=== PATIENT | male | born 1925 | race Caucasian/White ===

== ENCOUNTER 2016-07-17 11:48 | Emergency (ER) | payer MEDICARE ==
[~2016-07-17] VITALS: Ht 177.8 cm; Wt 81.6 kg
[~2016-07-17 11:48] MED LIST: ASPI-586 PO; BESI5DRO OS; BRIM5DRO OS; BRIM5DRO12 OS; CEFU500T PO; CIPR500T78 PO; DUREZOL 0.05% OS; HYDR-34 PO; HYDR-3729 PO; HYDR-3812 PO; LAMO25TA75 PO; NEPA1.7D OS; TMSL.4C PO
--- OUTSIDE RECORDS SUMMARY | 2016-07-17 11:53 | XMS REPORT | Continuity of Care Document ---
Author Author [facility] Organization [facility] Address Unknown Phone Unavailable Care Team Providers Care Price Economist Name Role Phone Ana Braun PCP [phone] Source Comments Some departments are not documenting in the electronic medical record. If you do not see the information that you expected, contact Release of Information in the Health Information Management department at [phone] for further assistance in locating additional records.[facility] Active Allergies and Adverse Reactions Allergen Noted Date Severity Reactions Comments Aspirin 09/24/2012 STOMACH UPSET, NAUSEA AND VOMITING Current Medications Prescription Sig. Disp. Refills Start End Date Status Date calcium carbonate (TUMS) Take 500 mg by mouth as Active 500 mg (200 mg elemental Needed. calcium) chewable tablet tamsulosin (FLOMAX) 0.4 Take 0.4 mg by mouth Active mg capsule daily. Do not crush, chew or open capsules. Take 30 minutes following the same meal each day. aspirin 81 mg chewable Chew 81 mg by mouth Active tablet daily. Take with food. lamoTRIgine (LAMICTAL) 25 Take 1 Tab by mouth 60 Tab 3 04/01/20 Active mg tablet daily. Take 25mg daily x1 16 week, then 25mg twice a day x1 week, then 50mg twice daily x1 week, then 75mg twice a day. 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 Most Recent Encounters Date Type Specialty Providers Description 07/14/2016 Documentation Neurology Yves Henderson MD 05/13/2016 Hospital Yves Henderson MD Encounter Social History Tobacco Use Types Packs/Day Years Used Date Former Smoker Cigarettes 30 Quit: 06/26/1967 Smokeless Tobacco: Never Used Alcohol Use Drinks/Week oz/Week Comments Yes 7 Glasses of 4.2 weekly wine Last Filed Vital Signs Vital Sign Reading Time Taken Blood Pressure 115/60 04/01/2016 8:14 AM CDT Pulse 92 04/01/2016 8:14 AM CDT Temperature 37.1 C (98.7 F) 04/01/2016 8:10 AM CDT Respiratory Rate - - Height 1.778 m (5' 10") 03/31/2016 4:33 PM CDT Weight 81.647 kg (180 lb) 03/31/2016 4:33 PM CDT Body Mass Index 25.83 03/31/2016 4:33 PM CDT Oxygen Saturation 100% 04/01/2016 8:14 AM CDT Plan of Care Health Maintenance Due Date Last Done Comments Physical (Comprehensive) 1934 Exam Pertussis Vaccine 1938 Tetanus Vaccine 1944 Shingles Vaccine 1987 Prevnar/Pneumovax (#1) 1992 Influenza Vaccine 02/25/2016 Results from Last 3 Months Not on file
[2016-07-17] MEDS ORDERED: AZIT250T PO ×2 (12:10→13:18)
[2016-07-17] MEDS ORDERED: PRD20T PO ×2 (12:10→13:18)
[2016-07-17] MEDS ORDERED: OXYMETAZOLINE (AFRIN) 0.05% NA 15 ML BTL ONE (12:11)
--- NOTE | 2016-07-17 12:11 | ED Cough/URI ---
General Chief Complaint: Cough/Cold/Flu Symptoms Stated Complaint: SORE THROAT Nursing Triage Note: AMBULATED TO ROOM 05 WITH HEAD COLD SX SINCE MON. DENIES FEVER. Source: patient Exam Limitations: no limitations History of Present Illness Time seen by provider: 11:57 Initial Comments 89 yo male patient presents with nasal congetion and sore throat beginning Mon. (+) malaise. Timing/Duration: other (4-5 days) Severity/Quality: no cough Prior Episodes/Possible Cause: no prior episodes Modifying Factors: Worse With Other (no improvement with OTC meds) Allergies and Home Medications Allergies Coded Allergies: aspirin (Verified Adverse Reaction, Unknown, 03/27/16) Patient states Aspirin really bothers his stomach. Home Medications Azithromycin 250 Mg Tablet #6 250 MG PO UD TAKE 2 TABLETS TODAY, THEN TAKE 1 TABLET DAILY FOR 4 MORE DAYS Prescribed by: ASHLEY ORDONEZ on 07/17/16 1210 Hydrocodone/Acetaminophen 1 Each Tablet 1 EACH PO Q4H PRN PRN PAIN (Reported) Lamotrigine 25 Mg Tablet 25 MG PO BID (Reported) Prednisone 20 Mg Tab #10 40 MG PO DAILY Prescribed by: ASHLEY ORDONEZ on 07/17/16 1210 Tamsulosin Hcl 0.4 Mg Cap 0.4 MG PO HS (Reported) Constitutional: No chills, No dizziness, No fever, malaise EENTM: nose congestion tearing throat painNo ear discharge, No ear pain, No eye pain, No throat swelling, No vision loss Respiratory: No cough, No short of breath, No wheezing Cardiovascular: no symptoms reported Gastrointestinal: no symptoms reported Musculoskeletal: no symptoms reported Skin: no symptoms reported Psychiatric/Neurological: No Symptoms Reported All Other Systems Reviewed Negative Unless Noted: Yes (Negative excepted noted.) Past Artrvfq-Kyxnus-Dqnljn Hx Patient Social History Type Used: Cigarettes Former Smoker/When Quit: Feb 05, 1962 Recent Foreign Travel: No Contact w/Someone Who Travel: No Recent Infectious Disease Expo: No Recent Hopitalizations: No Immunizations Up To Date Tetanus Booster (TDap): More than 5yrs Date of Pneumonia Vaccine: Jun 26, 2010 Date of Influenza Vaccine: Mar 22, 2016 Seasonal Allergies Seasonal Allergies: No Surgeries HX Surgeries: Yes (BACK X2) Surgeries: Appendectomy, Eye Surgery, Orthopedic, Tonsillectomy Respiratory Hx Respiratory Disorders: No Cardiovascular Hx Cardiac Disorders: No (LOOP RECORDER) Neurological Hx Neurological Disorders: No Reproductive System Hx Reproductive Disorders: No Sexually Transmitted Disease: No HIV/AIDS: No Genitourinary Hx Genitourinary Disorders: No Genitourinary Disorders: Benign Prostatic Hyperpl Gastrointestinal Hx Gastrointestinal Disorders: No Gastrointestinal Disorders: Ulcer Musculoskeletal Hx Musculoskeletal Disorders: Yes (BACK SURGERY X2) Musculoskeletal Disorders: Arthritis, Fractures Endocrine Hx Endocrine Disorders: No HEENT HX ENT Disorders: Yes (BILATERAL CATARACTS, WITH LEFT CATARACT REMOVED) HEENT Disorders: Cataract, Glaucoma Loss of Vision: Denies Hearing Impairment: Hard of Hearing, Bilateral Hearing Aide Cancer Hx Cancer: Yes ("PRECANCEROUS" ) Cancer: Skin Psychosocial Hx Psychiatric Problems: No Integumentary HX Skin/Integumentary Disorder: Yes ("PRECANCEROUS" SKIN LESIONS) Blood Transfusions Hx Blood Disorders: No Adverse Reaction to a Blood Tr: No Reviewed Nursing Assessment Reviewed/Agree w Nursing PMH: Yes Family Medical History Significant Family History: No Pertinent Family Hx Family Medial History: Cancer 03 MOTHER (Bone) Family history: Arthritis 03 FATHER 03 MOTHER Family history: Hypertension 03 FATHER Myocardial infarction 03 FATHER Physical Exam Vital Signs Vital Sign - Last 12Hours 07/17/16 11:59 Temp 98.1 Pulse 60 Resp 18 B/P 135/76 Pulse Ox 100 Capillary Refill : Less Than 3 Seconds General Appearance: WD/WN no apparent distress HEENT: PERRL/EOMI TMs normal pharyngeal erythema other ((+) nasal congestion with green drainage) Neck: non-tender full range of motion supple lymphadenopathy (R) lymphadenopathy (L) Respiratory: lungs clear normal breath sounds no respiratory distress Cardiovascular: regular rate, rhythm no murmur Gastrointestinal: normal bowel sounds non tender softNo distended Neurologic/Psychiatric: alert normal mood/affect oriented x 3 Skin: normal color warm/dry Progress/Results/Core Measures Results/Orders My Orders Orders-ASHLEY ORDONEZ Oxymetazoline 0.05% Nasal [place] (Afrin 0. (07/17/16 21:00) Vital Signs/I&O Vital Sign - Last 12Hours 07/17/16 11:59 Temp 98.1 Pulse 60 Resp 18 B/P 135/76 Pulse Ox 100 Blood Pressure Mean: 95 Departure Communication Progress Notes patient seen and evaluated. Plan for discharge home with Zithromax and prednisone. Impression Impression: Primary Impression: Upper respiratory infection Qualified Code: J06.9 - Acute upper respiratory infection, unspecified Disposition: 01 HOME, SELF-CARE Condition: Improved Departure-Patient Inst. Decision time for Depature: 12:09 Referrals: JOAQUINA VAUGHN MD (PCP/Family) Primary Care Physician Patient Instructions: Bacterial Upper Respiratory Infection, Adult (DC) Add. Discharge Instructions: All discharge instructions reviewed with patient and/or family. Voiced understanding. medications as instructed. Tylenol extra strength over-the- counter as directed for pain or fever. Ibuprofen etc. milligrams by mouth every 6-8 hours as a for pain or fever. Cool humidifier. Saline nasal spray and Afrin nasal spray [id number] as directed. Follow-up with Dr. Vaughn if no improvement in symptoms. Return to the emergency department for worsened so throat, fever, shortness of air, difficulty swallowing, or any other concerns. Scripts Prednisone 20 Mg Tab40 Mg PO DAILY #10 TAB Ref 0 Prov:ASHLEY ORDONEZ 07/17/16 Azithromycin (Zithromax)250 Mg [id number] Mg PO UD #6 TAB Ref 0 TAKE 2 TABLETS TODAY, THEN TAKE 1 TABLET DAILY FOR 4 MORE DAYS Prov:ASHLEY ORDONEZ 07/17/16 ASHLEY ORDONEZ Jul 17, 2016 12:11
[2016-07-17 12:23] VITALS: BP 135/76
[2016-07-17] MEDS ORDERED: OXYMETAZOLINE (AFRIN) 0.05% NA 15 ML BTL SCH (21:00)
== END 2016-07-17 12:23 | disposition home or self-care (01) ==
LOC: EDUNIT# 11:48 → ER 11:49
DX: J06.9 Acute upper respiratory infection, unspecified (principal)
CPT/HCPCS: 99282

== ENCOUNTER 2016-11-04 13:30 | Inpatient (IN) | payer MEDICARE ==
[~2016-11-04] VITALS: Ht 177.8 cm; Wt 85.0 kg
[~2016-11-04 13:30] MED LIST changes: +AZIT250T PO; +PRD20T PO
--- NOTE | 2016-11-04 14:16 | ED Abdominal Pain ---
General Chief Complaint: Abdominal/GI Problems Stated Complaint: SEVERE ABDOMINAL PAIN,SOB Nursing Triage Note: PT CO OF R LOWER ABD PAIN, GOT INTO CAR AND HAD SEVERE PAIN R LOWER ABD, STATES HAS RUPTURE THERE. Sepsis Screen: No Definite Risk Source of Information: Patient, Family Exam Limitations: No Limitations History of Present Illness Time Seen By Provider: 14:10 Initial Comments This is a 89-year-old white male presents with severe right groin pain while in Dr. SUÁREZ's office today. The patient was referred to emergency department for further evaluation. Upon arrival in emergency department the patient's right groin pain and spontaneously abated. The patient has a known right inguinal hernia that is scheduled for repair with Dr. SUÁREZ in the near future. The patient denied associated dysuria, frequency, nausea, vomiting, obstipation , melena, fever or chill. Patient's past medical history is essentially unremarkable. Allergies and Home Medications Allergies Coded Allergies: aspirin (Verified Adverse Reaction, Unknown, 03/27/16) Patient states Aspirin really bothers his stomach. Home Medications Lamotrigine 25 Mg Tablet, 25 MG PO BID, (Reported) Tamsulosin Hcl 0.4 Mg Cap, 0.4 MG PO HS, (Reported) Review of Systems Constitutional: No chills, No fever EENTM: No Eye Pain, No Ear Pain Respiratory: Denies Cough Cardiovascular: Denies Chest Pain Gastrointestinal: See HPI, Abdominal Pain Genitourinary: Denies Burning, Denies Frequency Musculoskeletal: No back pain Skin: No rash Psychiatric/Neurological: No Symptoms Reported Endocrine: No Symptoms Reported Hematologic/Lymphatic: No Symptoms Reported Past Lvgowdd-Eomqbq-Xysndz Hx Patient Social History Alcohol Use: Regular Use Recreational Drug Use: No Smoking Status: Former Smoker Type Used: Cigarettes Former Smoker/When Quit: Feb 05, 1962 Recent Foreign Travel: No Contact w/Someone Who Travel: No Recent Infectious Disease Expo: No Recent Hopitalizations: No Immunizations Up To Date Tetanus Booster (TDap): More than 5yrs Date of Pneumonia Vaccine: Jun 26, 2010 Date of Influenza Vaccine: Mar 22, 2016 Seasonal Allergies Seasonal Allergies: No Surgeries HX Surgeries: Yes (BACK X2) Surgeries: Appendectomy, Eye Surgery, Orthopedic, Tonsillectomy Respiratory Hx Respiratory Disorders: No Cardiovascular Hx Cardiac Disorders: No (LOOP RECORDER) Neurological Hx Neurological Disorders: No Reproductive System Hx Reproductive Disorders: No Sexually Transmitted Disease: No HIV/AIDS: No Genitourinary Hx Genitourinary Disorders: No Genitourinary Disorders: Benign Prostatic Hyperpl Gastrointestinal Hx Gastrointestinal Disorders: No Gastrointestinal Disorders: Ulcer Musculoskeletal Hx Musculoskeletal Disorders: Yes (BACK SURGERY X2) Musculoskeletal Disorders: Arthritis, Fractures Endocrine Hx Endocrine Disorders: No HEENT HX ENT Disorders: Yes (BILATERAL CATARACTS, WITH LEFT CATARACT REMOVED) HEENT Disorders: Cataract, Glaucoma Loss of Vision: Denies Hearing Impairment: Hard of Hearing, Bilateral Hearing Aide Cancer Hx Cancer: Yes ("PRECANCEROUS" ) Cancer: Skin Psychosocial Hx Psychiatric Problems: No Integumentary HX Skin/Integumentary Disorder: Yes ("PRECANCEROUS" SKIN LESIONS) Blood Transfusions Hx Blood Disorders: No Adverse Reaction to a Blood Tr: No Reviewed Nursing Assessment Reviewed/Agree w Nursing PMH: Yes Family Medical History Significant Family History: No Pertinent Family Hx Family Medial History: Cancer 03 MOTHER (Bone) Family history: Arthritis 03 FATHER 03 MOTHER Family history: Hypertension 03 FATHER Myocardial infarction 03 FATHER Physical Exam Vital Signs VS - Last 72 Hours, by Label 11/04/16 13:46 Temp 98.1 Pulse 60 Resp 18 B/P (MAP) 121/80 Pulse Ox 97 Capillary Refill : Less Than 3 Seconds General Appearance: WD/WN, no apparent distress HEENT: normal ENT inspection Neck: non-tender, full range of motion Respiratory: normal breath sounds Cardiovascular: regular rate, rhythm Gastrointestinal: normal bowel sounds, non tender, soft, other (there was evidence of a right sided lower abdominal fullness with Valsalva suggestive of a hernia defect. The mass was superior to the external right inguinal canal.) Extremities: normal range of motion, non-tender, normal inspection Back: normal inspection Neurologic/Psychiatric: no motor/sensory deficits, alert, normal mood/affect Skin: normal color, warm/dry Progress/Results/Core Measures Results/Orders Vital Signs/I&O Vital Sign - Last 12Hours 11/04/16 13:46 Temp 98.1 Pulse 60 Resp 18 B/P (MAP) 121/80 Pulse Ox 97 Blood Pressure Mean: 94 Progress Note : Time: 14:15 Progress Note I visit with Dr. SUÁREZ and he has patient be admitted for surgery in the morning. Departure Communication Time/Spoke to Admitting Phy: 14:[address] Suárez Impression Impression: Primary Impression: Incarcerated right inguinal hernia Disposition: ADMITTED INPATIENT Condition: Improved Decision to Admit Reason: Admit from ER (General) Decision to Admit/Date: November 04, 2016 Departure-Patient Inst. Referrals: JESSICA DE LA CRUZ MD (PCP/Family) Primary Care Physician JESSICA KENNEDY MD November 04, 2016 14:16
[2016-11-04 15:00] VITALS: BP 137/75
[2016-11-04] MEDS ORDERED: ACETAMINOPHEN 325 MG TABLET/CAPLET (TYLENOL) PO PRN (15:15)
[2016-11-04] MEDS ORDERED: CATHETER FLUSH 10 ML SYR IV PRN (15:15)
[2016-11-04] MEDS: NS IV 1000 ML 1,000 ML IV SCH (15:39)
[2016-11-04] MEDS ORDERED: LAMO25TA PO (15:46)
[2016-11-04] MEDS ORDERED: TAMS0.4C2 PO (15:46)
[2016-11-04] MEDS ORDERED: LANS15CA5 PO (15:46)
[2016-11-04] MEDS ORDERED: ASPI-983 PO (15:46)
--- NOTE | 2016-11-04 15:48 | HISTORY AND PHYSICAL ---
DATE OF SERVICE: 11/04/2016 ATTENDING PRIMARY CARE PHYSICIAN: Arabella Vaughn MD The patient is an 89-year-old male known to us. He was recently seen in the office for symptomatic right inguinal hernia. This hernia was reducible and only mildly tender to palpation. The options were given and the patient stated that he has a substantial amount of things to do this spring as well as summer, and he wanted to wait until afterwards to proceed with a laparoscopic inguinal hernia repair. He states that today, he was climbing into a car and developed pain in the right lower abdominal quadrant. This was followed by feelings of shortness of breath. Since being seen in the office and being evaluated in the emergency department, it appears that he may have had an incarcerated hernia which reduced on its own. The hernia was reducible with minimal pain. He states the shortness of breath also had resolved. PAST MEDICAL HISTORY: BPH, degenerative joint disease, mild seizure disorder. PAST SURGICAL HISTORY: Appendectomy at 59, tonsillectomy, kyphoplasty 2007. ALLERGIES: No known drug allergies. MEDICATIONS: Aspirin 81 mg daily, lamotrigine 25 mg b.i.d., tamsulosin 0.4 mg daily. SOCIAL HISTORY: Negative smoke, negative alcohol. FAMILY HISTORY: Mother, sister, brother lung cancer. Father, myocardial infection, age 56. VITAL SIGNS: Temperature 98.1, blood pressure 121/80, pulse 60, respirations 18, pulse ox 97% on room air. REVIEW OF SYSTEMS: CONSTITUTIONAL: Well nourished male currently in no acute distress. He is not experiencing any shortness of breath or difficulty breathing. No chest pain, palpitations, diaphoresis. No nausea, vomiting. No diarrhea, constipation. No fever, chills. No recent inadvertent weight loss. PHYSICAL EXAMINATION: CHEST: Clear. HEART: Regular. EXTREMITIES: No lower extremity edema, negative Ronaldo sign. HEENT: No scleral icterus. No cervical lymphadenopathy. ABDOMEN: Soft, nondistended. There is a reducible right inguinal hernia which is slightly tender to palpation. There is no left inguinal hernia component. ASSESSMENT AND PLAN: An 89-year-old male with symptomatic, previously incarcerated right inguinal hernia. The natural history of hernias were once again explained to patient and due to these recurring symptoms, he would like to proceed with a laparoscopic right inguinal hernia with mesh. He did eat lunch today, and we will start a clear liquid diet today and give adequate to IV and oral medication, and proceed with the laparoscopic right inguinal hernia repair with mesh tomorrow morning. Job ID: [id number] DocumentID: [id number] Dictated Date: 11/04/2016 15:26:25 Meter Reader Chief Date: 11/04/2016 15:47:28 Dictated By: MOLINA SUÁREZ MD
[2016-11-04] MEDS ORDERED: morphine INJ 4 MG/ML 1 ML (VIAL/SYRINGE) IVP PRN (16:30)
[2016-11-04] MEDS ORDERED: ONDANSETRON 4 MG/2 ML (SDV) Z0FRAN IVP PRN (16:30)
[2016-11-04] MEDS ORDERED: HYDROcodone/APAP 5 MG/325 MG (LORTAB) TAB PO PRN (16:30)
--- NOTE | 2016-11-04 17:56 | Progress Note-Pre Operative ---
Pre-Operative Progress Note H&P Reviewed The H&P was reviewed, patient examined and no changes noted. Date H&P Reviewed: November 04, 2016 Time H&P Reviewed: 17:56 Pre-Operative Diagnosis: symptomatic right inguinal hernia MOLINA SUÁREZ MD November 04, 2016 5:56 pm
[2016-11-04] MEDS ORDERED: ALFUZOSIN HCL 10 MG TAB (UROXATRAL) PO SCH (18:00)
[2016-11-04 20:00] VITALS: BP 130/76
[2016-11-04] MEDS: lamoTRIgine 25 MG (LaMICtal) TAB PO SCH (20:27)
[2016-11-04] MEDS ORDERED: PANTOPRAZOLE 20 MG TABLET (PROTONIX) PO SCH (21:00)
[2016-11-04] MEDS ORDERED: NON-FORMULARY MEDICATION 1 EA EA (Lansoprazole 15 MG) PO SCH (21:00)
[2016-11-05] VITALS: BP 120/71
[2016-11-05 04:15] VITALS: BP 123/58
[2016-11-05 05:12] LABS: BASOPHILS % (AUTO) 1 % (0-10); EOSINOPHILS # (AUTO) 0.4 10^3/uL (0.0-0.3); EOSINOPHILS % (AUTO) 6 % (0-10); LYMPHOCYTES # (AUTO) 1.4 X 10^3 (1.0-4.0); LYMPHOCYTES % (AUTO) 23 % (12-44); MEAN CORPUSCULAR HEMOGLOBIN 29 PG (25-34); MEAN CORPUSCULAR HGB CONC 33 G/DL (32-36); MEAN CORPUSCULAR VOLUME 88 FL (80-99); MEAN PLATELET VOLUME 9.3 FL (7.4-10.4); MONOCYTES # (AUTO) 0.6 X 10^3 (0.0-1.0); MONOCYTES % (AUTO) 10 % (0-12); NEUTROPHILS # (AUTO) 3.5 X 10^3 (1.8-7.8); NEUTROPHILS % (AUTO) 60 % (42-75); PLATELET COUNT 184 10^3/uL (130-400); RED BLOOD COUNT 4.06 10^6/uL (4.35-5.85); RED CELL DISTRIBUTION WIDTH 13.7 % (10.0-14.5); WHITE BLOOD COUNT 5.8 10^3/uL (4.3-11.0)
[2016-11-05 05:33] LABS: ALANINE AMINOTRANSFERASE 11 U/L (0-55); ALBUMIN 3.7 G/DL (3.2-4.5); ANION GAP 8 MMOL/L (5-14); ASPARTATE AMINO TRANSFERASE 15 U/L (5-34); BILIRUBIN,TOTAL 0.6 MG/DL (0.1-1.0); BLOOD UREA NITROGEN 20 MG/DL (7-18); BUN/CREATININE RATIO 23; CALCIUM 9.2 MG/DL (8.5-10.1); CARBON DIOXIDE 24 MMOL/L (21-32); CHLORIDE 107 MMOL/L (98-107); CREATININE SERUM 0.88 MG/DL (0.60-1.30); GFR ESTIMATED > 60; GLUCOSE 99 MG/DL (70-105); POTASSIUM 4.1 MMOL/L (3.6-5.0); SODIUM 139 MMOL/L (135-145); TOTAL PROTEIN 5.6 G/DL (6.4-8.2)
[2016-11-05 07:17] LABS: BILIRUBIN,URINE NEGATIVE (NEGATIVE); KETONES,URINE NEGATIVE (NEGATIVE); LEUKOCYTE ESTERASE ,URINE NEGATIVE (NEGATIVE); NITRITE,URINE NEGATIVE (NEGATIVE); PH,URINE 7 (5-9); PROTEIN,URINE NEGATIVE (NEGATIVE); UROBILINOGEN,URINE NORMAL (NORMAL)
[2016-11-05 08:04] VITALS: BP 127/77
[2016-11-05] MEDS: lamoTRIgine 25 MG (LaMICtal) TAB PO SCH (08:31)
--- NOTE | 2016-11-05 08:57 | Diagnostic Imaging Report ---
EXAMINATION: Chest radiograph, portable AP view. DATE: November 05, 2016 at 0502 hours. INDICATION: 89-year-old male, history of incarcerated hernia. COMPARISON: February 03, 2015. FINDINGS: Stable overall appearance of the cardiomediastinal silhouette. There is no identified pneumothorax. There is no large pleural effusion. There is no identified interval focal airspace consolidation. IMPRESSION: 1. No identified acute cardiopulmonary abnormality. Dictated by: Dictated on workstation # [id number]
[2016-11-05] MEDS ORDERED: NON-FORMULARY MEDICATION 1 EA EA (Tamsulosin HCl 0.4 MG) PO SCH (09:00)
[2016-11-05] MEDS ORDERED: BUP/EPI 0.5% 1:200,000 (SENSORCAINE) 30 ML VIAL ONE (09:17)
[2016-11-05] MEDS ORDERED: fentaNYL INJECTION 100 MCG/2 ML AMP ONE (09:50)
[2016-11-05] MEDS ORDERED: ceFAZolin 1,000 MG (ANCEF) VIAL ONE (10:57)
[2016-11-05] MEDS ORDERED: LIDOCAINE PF 2% 10 ML (XYLOCAINE) AMP ONE (10:58)
[2016-11-05] MEDS ORDERED: ONDANSETRON 4 MG/2 ML (SDV) Z0FRAN ONE (10:58)
[2016-11-05] MEDS ORDERED: proPOfol 200 MG/20 ML (DIPRIVAN) VIAL IV ONE (10:58)
[2016-11-05] MEDS ORDERED: SEVOFLURANE (ULTANE) 15 ML INHAL SOLN ONE ×3 (10:58→11:12)
[2016-11-05] MEDS ORDERED: morphine INJ 10 MG/ML 1ML (SYR OR VIAL) ONE ×2 (10:59→11:25)
[2016-11-05] MEDS ORDERED: ceFAZolin INJECTION 1,000 MG in NS (IVPB) 50 ML IV ONE (11:00)
[2016-11-05] MEDS ORDERED: LACTATED RINGERS 1,000 ML IV ONE (11:15)
--- NOTE | 2016-11-05 11:21 | Progress Note-Post Operative ---
Post-Operative Progess Note Surgeon (s)/Head Of Store Operations (s) Surgeon MOLINA SUÁREZ MD Head Of Store Operations: geronimo vicente SQUARING SHEAR OPERATOR Pre-Operative Diagnosis symptomatic right inguinal hernia Post-Operative Diagnosis symptomatic indirect inguinal hernia with mesh. Procedure & Operative Findings Date of Procedure 11/05/16 Procedure Preformed/Findings laparoscopic right inguinal hernia repair with mesh. Anesthesia Type GET Estimated Blood Loss Estimated blood loss (mL): minimal Specimens/Packing Specimens Removed none Packing: none MOLINA SUÁREZ MD November 05, 2016 11:21 am
[2016-11-05] MEDS ORDERED: HYDR-3812 PO (11:24)
[2016-11-05] MEDS ORDERED: GLYCOPYRROLATE 0.2 MG/ML (ROBINUL) 2 ML VIAL ONE (11:27)
[2016-11-05] MEDS ORDERED: NEOSTIGMINE (BLOXIVERZ ) 1 MG/1ML 10 ML VIAL ONE (11:27)
--- NOTE | 2016-11-05 11:27 | Discharge Inst-Surgical ---
D/C Lap Instructions-JOSE ARMANDO New, Converted, or Re-Newed RX: RX on Chart Follow Up Appt in 2 weeks Activity as tolerated No driving for 24 hours No driving while on pain medications Incentive Spirometry use every 2 hours while awake Regular Diet Symptoms to Report: Fever over 101 degree F, Nausea/Vomiting Infection Signs and Symptoms to report: Increased redness, Foul odor of wound, Increased drainage Bathing instructions: May shower Operative Area Clean/Dry; Keep incision clean/dry If any problems/questions: Contact your physician or go to Emergency Room MOLINA SUÁREZ MD November 05, 2016 11:27 am
[2016-11-05 12:00] VITALS: BP 112/62
[2016-11-05] MEDS ORDERED: ONDANSETRON 4 MG/2 ML (SDV) Z0FRAN IVP PRN (12:00)
[2016-11-05] MEDS ORDERED: morphine INJ 10 MG/ML 1ML (SYR OR VIAL) IVP PRN (12:00)
[2016-11-05] MEDS: NS IV 1000 ML 1,000 ML IV SCH (14:41)
--- NOTE | 2016-11-06 13:07 | OPERATIVE REPORT ---
DATE OF SERVICE: ATTENDING AND PRIMARY CARE PHYSICIAN: Dr. Hou. PREOPERATIVE DIAGNOSIS: Symptomatic right inguinal hernia. POSTOPERATIVE DIAGNOSIS: Symptomatic right indirect inguinal hernia. PROCEDURE: Laparoscopic right inguinal hernia repair with mesh. SURGEON: Dr. Suárez. MECHANICAL SHOVEL OPERATOR: Ronald Sanches APRN. ANESTHESIA: General endotracheal. ESTIMATED BLOOD LOSS: Minimal. FINDINGS: Indirect inguinal hernia. There was nothing within the hernia sac at the time. DISPOSITION: The patient tolerated the procedure well. INDICATIONS: The patient is an 89-year-old male who was recently seen in the office for symptomatic right inguinal hernia. This hernia was reducible at the time and only mildly tender to palpation. The options were given to the patient and he had reported that he has a lot of things to do this spring and summer and wanted to wait until afterwards to proceed with the laparoscopic inguinal hernia repair. He was climbing into a car developed pain in the right lower abdominal quadrant followed by feelings of shortness of breath as well as abdominal distention. He was evaluated in the Emergency Department and it appeared that he had an incarcerated hernia; however, it reduced on its own. DESCRIPTION OF PROCEDURE: The patient was brought to the operating room, laid supine on the table. After adequate IV pain and sedative medications and general endotracheal intubation, the abdomen was prepped and draped in standard surgical fashion. 0.5% Marcaine with epinephrine was then used to anesthetize the overlying skin in the infraumbilical rim. A crescent-shaped skin incision was made using a 15 blade and the abdominal wall was retracted anteriorly. A Veress needle inserted with a low opening pressure of 0 mmHg. The abdomen was insufflated to 15 mmHg pressure. The Veress needle removed and a 10 mm Xcel trocar placed followed by a 10 mm 45 degree angle laparoscope visualizing the peritoneal cavity. A 4 quadrant abdominal x-ray was performed. A significant sized right indirect inguinal hernia was identified. There was nothing in the hernia sac at the time. There was no left inguinal hernia component. There were adhesions encompassing the cecum towards the anterior abdominal wall from a previous open appendectomy. What was visualized of the small bowel, omentum and colon was otherwise normal. Under direct visualization, we then proceeded to place bilateral 5 mm ports after the skin and peritoneum were anesthetized using 0.5% Marcaine with epinephrine and a transverse skin incision made using a 15 blade. The patient was then placed in Trendelenburg position. The adhesions to the cecum were taken down using sharp dissecting scissors. We then proceeded to open the peritoneal lining starting laterally towards the conjoint tendon and inguinal ligament. We then proceeded medially toward Douglas ligament. We then proceeded with inferior dissection encompassing the entire hernia sac, identifying the cord and its contents and sparing them. Good hemostasis was observed. A medium sized Bard 3-D max polypropylene mesh was then placed through the 10 mm port site. The mesh was then tacked to Douglas ligament medially and the conjoint tendon and inguinal ligament laterally. The peritoneal lining was placed over the mesh and a few tacks placed to hold it into place with visualization, good hemostasis. The 10 mm port site fascia and peritoneum were then closed under direct visualization using Ganesh-Barbara device and 0 Vicryl suture. The abdomen was desufflated, the remaining ports removed. All skin incisions were closed using 4-0 Monocryl running subcuticular sutures. Wounds were then cleaned and covered with Dermabond. The patient tolerated the procedure well. We will start IV and oral pain medications as well as a clear liquid diet. Once he is tolerating clears and has good pain control with oral pain medications and ambulating well, we will discharge him home. Job ID: [id number] DocumentID: [id number] Dictated Date: 11/05/2016 11:34:18 Cryptanalyst Date: 11/06/2016 13:06:47 Dictated By: MOLINA SUÁREZ MD
[2016-11-07] MEDS ORDERED: LACTATED RINGERS 1,000 ML IV SCH (09:30)
== END 2016-11-05 16:00 | disposition home or self-care (01) | DRG 352 ==
LOC: EDUNIT# 13:30 → ER 13:35 → 4TH 14:05
PROVIDERS: ADMIT Surgery Pediatric Surgery; ATTEND Surgery Pediatric Surgery
PROC: 0YU54JZ Supplement Right Inguinal Region with Synthetic Substitute, Percutaneous Endoscopic Approach (ICD-10-PCS; 2016-11-05)
PROC: 0YQ54ZZ Repair Right Inguinal Region, Percutaneous Endoscopic Approach (ICD-10-PCS; principal; 2016-11-05 09:53)
DX: K40.90 Unilateral inguinal hernia, without obstruction or gangrene, not specified as recurrent (principal); G40.909 Epilepsy, unspecified, not intractable, without status epilepticus; N40.0 Benign prostatic hyperplasia without lower urinary tract symptoms; M19.90 Unspecified osteoarthritis, unspecified site; Z79.899 Other long term (current) drug therapy; Z79.82 Long term (current) use of aspirin
CPT/HCPCS: 36415; 71010; 80053; 81000; 85025; 87081; 93005